=== PATIENT | female | born 1995 | race Caucasian/White ===

== ENCOUNTER 2022-10-19 04:14 | Outpatient (CLI) | payer BC, SELFPAY ==
[2022-10-19 12:04] LABS: Panorama Kit Sent via Fed Ex
[2022-10-19 12:18] LABS: Abs Immature Grans 0.01 10^3/uL (0.0-0.06); Absolute Basophil Count 0.02 10^3/uL (0.0-0.2); Absolute Eosinophil Count 0.03 10^3/uL (0.0-0.7); Absolute Lymphocyte Count 1.25 10^3/uL (1.2-3.4); Absolute Monocyte Count 0.35 10^3/uL (0.1-0.8); Absolute Neutrophil Count 4.74 10^3/uL (1.2-6.7); Basophils % 0.3; Eosinophils % 0.5; HCT 35.2 % (36.0-46.0); HGB 11.8 g/dL (11.2-15.7); Immature Grans % 0.2; Lymphocytes % 19.5; MCH 29.9 pg (27.0-33.0); MCHC 33.5 % (32.0-36.0); MCV 89 fL (80-95); Monocytes % 5.5; Platelet Count 212 10^3/uL (130-400); RBC 3.95 10^6/uL (3.93-5.22); RDW 12.2 % (11.7-14.6); RDW-SD 39.8 fL
[2022-10-20 09:24] LABS: Hepatitis C Ab w Rflx HCV PCR Negative (Negative)
[2022-10-20 10:39] LABS: HIV-1/2 Ag & Ab Screen Negative (Negative)
[2022-10-20 13:10] LABS: Varicella IgG Antibody Negative (See Note)
[2022-10-20 13:14] LABS: Rubella IgG Ab (UVM) Negative (See Note)
[2022-10-20 14:46] LABS: Hepatitis B Surface Ag Negative (Negative)
[2022-10-22 15:22] LABS: Syphilis IgG w/Reflex Nonreactive (Nonreactive)
[2022-10-23 18:38] LABS: Specimen WB Whole Blood
[2022-11-01 13:50] LABS: Result Summary NEGATIVE; Specimen WB Whole Blood
== END 2022-10-19 04:15 | disposition home or self-care (01) ==
LOC: LBO 04:15
PROVIDERS: Visit Provider Advanced Practice Midwife
DX: Z34.91 Encounter for supervision of normal pregnancy, unspecified, first trimester
CPT/HCPCS: 36415; 81220; 81222; 81329; 86787; 86803; 86850; 86900; 86901; 87340; 87389; 85025; 86762; 86780

== ENCOUNTER 2022-10-19 11:55 | Outpatient (REF) | payer BC, SELFPAY ==
--- NOTE | 2022-10-19 11:00 | PAPFT_PTH ---
PATIENT: Anna Botaeng LOC: [facility] U#:[id number] AGE/SX: 26/F ROOM: RE10/19/[address]: Margarette Millan CNM : 1995 BED: DIS: 10/19/2022 SPEC #: [id number] RECD: 10/19/22 16:21 STATUS: GERBER REQ #: [id number] VICTOR MANUEL: 10/19/22 11:[address]: Margarette Millan DEPT: [facility], [facility] Cytology RECD BY: Ailyn Wray Tissues: 1 - CX/ENDOCX FOR PAP SMEARS Procedures: PAP THIN PREP/UVM Screening Comments: [id number] (CHLAMYDIA/GC)
[2022-10-19 17:11] LABS: *AMPHETAMINES SCREEN URINE Negative (Negative); *BARBITURATES SCREEN URINE Negative (Negative); *BENZODIAZEPINES SCREEN URINE Negative (Negative); Cannabinoids THC Negative (Negative); Cocaine Screen,Urine Negative (Negative); METHADONE URINE SCREEN Negative (Negative); OPIATES URINE SCREEN Negative (Negative)
[2022-10-19 17:17] LABS: Tricyclic Antidepressants Negative (Negative)
[2022-10-20 14:41] LABS: Chlamydia Result Negative (Negative); GC Result Negative (Negative)
[2022-10-27 18:36] LABS: Buprenorphine Negative ng/mL (Cutoff: 5.0); Norbuprenorphine Negative ng/mL (Cutoff: 2.5)
== END 2022-10-19 11:56 | disposition home or self-care (01) ==
LOC: LBN 11:55
PROVIDERS: Visit Provider Advanced Practice Midwife
DX: Z12.4 Encounter for screening for malignant neoplasm of cervix (principal)
CPT/HCPCS: 80307; 80348; 87491; 87591; 88142; 87086

== ENCOUNTER 2023-02-12 07:33 | Outpatient (CLI) | payer BC, MEDICAID, SELFPAY ==
[2023-02-12 09:57] VITALS: BP 118/77; PULSE 91; TEMP 36.4
--- NOTE | 2023-02-12 10:53 | W.OBNST ---
Date of service: 02/12/23 Time of Service: 10:54 NST Evaluation Reason for NST Reasons for Nonstress Test: OTHER, SEE COMMENT Reason for NST Other: Flank Pain Gestational Age Gestational Age in Weeks and Days: 28 Weeks and 1Days Test and Monitor Explained Test/Monitor Explained: Test Explained, Monitor Explained and Patient Verbalized Understanding Vital Signs Blood Pressure: 118/77 Pulse: 91 Temperature: 97.5 F Urine Results Urine Protein: Negative Urine Ketones: Negative Urine Glucose: Negative Urine Blood: Negative NST Information Date on Monitor: 02/12/23 Time on Monitor: 09:00 Date off Monitor: 02/12/23 Time off Monitor: 09:55 Total Time on Monitor: 55 NST Interventions: PO Hydration and Notify Provider Contraction Frequency: 0 NST Evaluation Patient States Movement: Present FHR Baseline: 135 Variability: Moderate 6-25 bpm Accelerations: 10x10 Decelerations: Variable NST Results: Reactive Note Ultrasound Done: N/A. NST Note Note: Anna called this morning and complains of upper abdominal pain on left and above umbilicus. She has a history of umbilical hernia and has been referred to surgery. She was told by surgery to schedule appointmnet after . She denies constipation or diarrhea. She is eating normally and denies nausea or vomiting. . She reports that she had fetuccine with broccoli for dinner last night. She also complains of left sciatica O- Abdomen is soft with firm bulging noted at umbilicus. Upper abdomen is slightly distended with bowel gas palpable. Urine dip neg. reactive NST and no evidence of labor. P - Consultation with Dr Solis who agrees with plan for surgery consultation after delivery. She encouraged patient to call with vomiting and nausea or unable to have a BM. 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 Kidney US ordered. Clean catch urine sent for culture. Colace BID escribed. Referred to PT for sciatica. NST Reviewed and Verified by: Pauly Benítez
[2023-02-12 11:01] VITALS: BP 118/77; PULSE 91; TEMP 36.4
== END 2023-02-12 10:25 | disposition home or self-care (01) ==
LOC: BCD 07:35 → OBS 09:01
PROVIDERS: Visit Provider Advanced Practice Midwife
DX: O26.893 Other specified pregnancy related conditions, third trimester (principal); R10.10 Upper abdominal pain, unspecified; Z3A.28 28 weeks gestation of pregnancy
CPT/HCPCS: 59025; 81003; 87086

== ENCOUNTER 2023-02-16 01:49 | Outpatient (CLI) | payer BC, MEDICAID, SELFPAY ==
[2023-02-16 09:29] LABS: HCT 33.7 % (36.0-46.0); HGB 11.5 g/dL (11.2-15.7); MCH 31.1 pg (27.0-33.0); MCHC 34.1 % (32.0-36.0); MCV 91 fL (80-95); MPV 9.9 fL (8.0-11.0); Platelet Count 215 10^3/uL (130-400); RDW 12.5 % (11.7-14.6); RDW-SD 41.4 fL; WBC 6.58 10^3/uL (4.4-10.8)
[2023-02-16 09:46] LABS: Glucose,1 Hr (Glucola) 97 mg/dL (80-140)
== END 2023-02-16 01:50 | disposition home or self-care (01) ==
LOC: LBO 01:49
PROVIDERS: Visit Provider Advanced Practice Midwife
DX: Z34.93 Encounter for supervision of normal pregnancy, unspecified, third trimester (principal); Z3A.28 28 weeks gestation of pregnancy
CPT/HCPCS: 36415; 82950; 85027

== ENCOUNTER 2023-03-30 19:53 | Outpatient (CLI) | payer BC, MEDICAID, SELFPAY ==
[2023-03-30 20:25] VITALS: BP 115/63; PULSE 77
[2023-03-30 20:57] VITALS: BP 115/63; PULSE 77
--- NOTE | 2023-03-31 09:18 | W.OBNST ---
Date of service: 03/30/23 Time of Service: 21:00 NST Evaluation Reason for NST Reasons for Nonstress Test: OTHER, SEE COMMENT Reason for NST Other: gas pain Gestational Age Gestational Age in Weeks and Days: 34 Weeks and 5Days Test and Monitor Explained Test/Monitor Explained: Test Explained Vital Signs Blood Pressure: 115/63 Pulse: 77 Urine Results Urine Protein: Negative Urine Ketones: Negative Urine Glucose: Negative Urine Blood: Negative NST Information Date on Monitor: 03/30/23 Time on Monitor: 20:26 Date off Monitor: 03/30/23 Time off Monitor: 20:57 Total Time on Monitor: 31 NST Interventions: None NST Evaluation Patient States Movement: Present FHR Baseline: 135 Variability: Moderate 6-25 bpm Accelerations: 15x15 Decelerations: None NST Results: Reactive Note Ultrasound Done: N/A. NST Note Note: Anna called earlier this evening and complained of pain in upper abdomen midline. She said that she was certain it was ga as she has experienced previously in this . She was told to try warm liquids and a warm bath and she called back and did get some relief from that but was still experiencing pain when she moves. Gas palpable in upper right quadrant and midline where the pain is now located. Left sided rest recommended at home and call if no relief. reactive NST. Will consider abdominal US if pain persists due to previously identified kidney hydronephritis. NST Reviewed and Verified by: Pauly Benítez
[2023-03-31 09:21] VITALS: BP 115/63; PULSE 77
== END 2023-03-30 21:00 | disposition home or self-care (01) ==
LOC: LBN 19:58 → BCD 20:02 → OBS 20:25
PROVIDERS: Visit Provider Advanced Practice Midwife
DX: O26.893 Other specified pregnancy related conditions, third trimester (principal); R10.10 Upper abdominal pain, unspecified; Z3A.34 34 weeks gestation of pregnancy
CPT/HCPCS: 59025

== ENCOUNTER 2023-04-13 13:30 | Outpatient (REF) | payer BC, MEDICAID, SELFPAY ==
[2023-04-13 15:29] LABS: *AMPHETAMINES SCREEN URINE Negative (Negative); *BARBITURATES SCREEN URINE Negative (Negative); *BENZODIAZEPINES SCREEN URINE Negative (Negative); Cannabinoids THC Negative (Negative); Cocaine Screen,Urine Negative (Negative); METHADONE URINE SCREEN Negative (Negative); OPIATES URINE SCREEN Negative (Negative)
[2023-04-13 15:30] LABS: Tricyclic Antidepressants Negative (Negative)
[2023-04-20 11:38] LABS: Buprenorphine Negative ng/mL (Cutoff: 5.0)
== END 2023-04-13 13:31 | disposition home or self-care (01) ==
LOC: LBN 13:30
PROVIDERS: Visit Provider Advanced Practice Midwife
DX: Z34.93 Encounter for supervision of normal pregnancy, unspecified, third trimester (principal); Z3A.36 36 weeks gestation of pregnancy; Z36.85 Encounter for antenatal screening for Streptococcus B
CPT/HCPCS: 80307; 80348; 87081

== ENCOUNTER 2023-04-20 13:04 | Outpatient (CLI) | payer BC, MEDICAID, SELFPAY ==
[2023-04-20 13:46] VITALS: BP 125/75; PULSE 87; TEMP 36.8
[2023-04-20 13:57] VITALS: BP 125/75; PULSE 87; TEMP 36.8
--- NOTE | 2023-04-20 13:57 | W.OBNST ---
Date of service: 04/20/23 Time of Service: 13:57 NST Evaluation Reason for NST Reasons for Nonstress Test: DECREASED MOVEMENT Gestational Age Gestational Age in Weeks and Days: 37 Weeks and 5Days Test and Monitor Explained Test/Monitor Explained: Test Explained, Monitor Explained and Patient Verbalized Understanding Vital Signs Blood Pressure: 125/75 Pulse: 87 Temperature: 98.2 F Urine Results Urine Protein: Negative Urine Ketones: Negative Urine Glucose: Negative Urine Blood: Negative NST Information Date on Monitor: 04/20/23 Time on Monitor: 13:08 Date off Monitor: 04/20/23 Time off Monitor: 13:40 Total Time on Monitor: 32 NST Interventions: PO Hydration NST Evaluation Patient States Movement: Present and Decreased FHR Baseline: 125 Variability: Moderate 6-25 bpm Accelerations: 15x15 Decelerations: None NST Results: Reactive Note Ultrasound Done: N/A. NST Note NST Reviewed and Verified by: Margarette Millan
== END 2023-04-20 13:55 | disposition home or self-care (01) ==
LOC: BCD 13:09 → OBS 13:18
PROVIDERS: Visit Provider Advanced Practice Midwife
DX: O36.8131 Decreased fetal movements, third trimester, fetus 1 (principal); Z3A.37 37 weeks gestation of pregnancy
CPT/HCPCS: 59025

== ENCOUNTER 2023-04-29 10:47 | Outpatient (CLI) | payer BC, MEDICAID, SELFPAY ==
[2023-04-29 12:44] VITALS: BP 130/88; PULSE 96; TEMP 37
[2023-04-29 12:56] VITALS: BP 130/88; PULSE 96
--- NOTE | 2023-04-29 13:37 | W.OBNST ---
Date of service: 04/29/23 Time of Service: 13:37 NST Evaluation Reason for NST Reasons for Nonstress Test: OTHER, SEE COMMENT Reason for NST Other: R/O labor Gestational Age Gestational Age in Weeks and Days: 39 Weeks and 0Days Test and Monitor Explained Test/Monitor Explained: Test Explained, Monitor Explained and Patient Verbalized Understanding Vital Signs Blood Pressure: 130/88 Pulse: 96 Temperature: 98.6 F NST Information Date on Monitor: 04/29/23 Time on Monitor: 12:42 Date off Monitor: 04/29/23 Time off Monitor: 13:36 Total Time on Monitor: 54 NST Interventions: PO Hydration NST Evaluation Patient States Movement: Present FHR Baseline: 125 Variability: Moderate 6-25 bpm Accelerations: 15x15 Decelerations: None NST Results: Reactive Note Ultrasound Done: N/A. NST Note Note: NST is reactive and reassuring. Irregular contractions noted but patient was comfortable leaving to return if more active contractions are noted. DONALD NST Reviewed and Verified by: Pauly Mittal
[2023-04-29 13:38] VITALS: BP 130/88; PULSE 96; TEMP 37
== END 2023-04-29 13:37 | disposition home or self-care (01) ==
LOC: BCD 10:58 → OBS 12:43
PROVIDERS: Visit Provider Advanced Practice Midwife
DX: O47.1 False labor at or after 37 completed weeks of gestation (principal); Z3A.39 39 weeks gestation of pregnancy
CPT/HCPCS: 59025

== ENCOUNTER 2023-05-03 06:18 | Inpatient (IN) | payer BC, MEDICAID, SELFPAY ==
[2023-05-03] VITALS (51 sets, daily range): BP systolic 101–155; BP diastolic 53–84; PULSE 64–145; RESP 1–18; TEMP 36.4–37.4; O2SAT 97–100; BMI 25.0
[2023-05-03 07:51] LABS: HCT 39.2 % (36.0-46.0); HGB 13.5 g/dL (11.2-15.7); MCH 30.9 pg (27.0-33.0); MCHC 34.4 % (32.0-36.0); MCV 90 fL (80-95); MPV 12.5 fL (8.0-11.0); Platelet Count 234 10^3/uL (130-400); RBC 4.37 10^6/uL (3.93-5.22); RDW 12.3 % (11.7-14.6); RDW-SD 40.5 fL; WBC 11.65 10^3/uL (4.4-10.8)
--- NOTE | 2023-05-03 10:02 | HPE_ITS ---
Date of service: 05/03/23 Time of Service: 10:02 Assessment and Plan Assessment and plan (1) Spontaneous onset of labor: Status: Acute Assessment and plan: Admit to Center. Comfort measures. Covid- 19 test. Anticipate . OB-HPI Labor/Delivery History of Present Illness Reason for Visit: Labor Chief Complaint: Uterine Contractions. JAX Calculator Estimated Delivery Date Method Current WG Current Estimate 05/06/23 LMP (Certain) 39w 4d Comments: Anna called at 0400 and reports strong regular contractions that are 5-6 minutes apart. She presented to the Center and was admitted in early active labor History of Present Expected Delivery Route/Plan - CNM FOB/sunil - Abel Edmonds (first child) BB would like tub room Offer VZV and MMR PP (non immune X2) GBS negative Specific Issues/Plan 1. Desires genetic screening, CF/SMA neg, cfDNA LR male, 2. nausea - IV therapy at [facility]- Ondansetron 4 mg PO and ODT escribed 11/17/22 3. Umbilical bulging, probable hernia, referred to [facility] surgical for consult, given abdominal binder 3a. Increasing discomfort at 28 weeks. Mom - ez support recommmended and daily use recommended. 4. MEDICAL TECHNOLOGIST HEMATOLOGY on anatomy US, patient wanted f/up US though cfDNA=nml risk, 4a. Scan 01/19 recheck MEDICAL TECHNOLOGIST HEMATOLOGY, report states no evidence of MEDICAL TECHNOLOGIST HEMATOLOGY, pt reassured. 5. Sciatica - referred to PT 6. Left bishnu-umbilical pain - Neg. urine, renal US scheduled- mild-moderate hydronephrosis bilaterally - relief methods discussed 7. COVID+ mild sx at home, @ 33 wks [facility] All Active Problems (Updated 05/03/23 @ 10:06 by Pauly Benítez CNM) Spontaneous onset of labor (Acute) COVID-19 virus infection (Acute) at 32 wks Sciatica (Acute) Abdominal pain (Acute) Umbilical abnormality (Acute) umbilical hernia Maternal varicella, non-immune (Acute) Rubella non-immune status, antepartum (Acute) Migraine (Chronic) ADHD, adult residual type (Acute) (Acute) Endometriosis (Chronic) Medical History (Updated 05/03/23 @ 10:06 by Pauly Benítez CNM) Choroid plexus cyst of fetus affecting care of mother, antepartum resolved at 24 wks Missed menses Surgical History (Updated 08/31/22 @ 14:44 by Pauly Benítez CNM) Hx of laparoscopy Social History Smoking/Tobacco Use Status: Never Smoking risk assessment performed?: Yes Drug use: Never Housing: house Do you feel safe at home: Yes Do you feel safe in your relationship?: Yes History History 1 Para 0 Hx # Term Pregnancies 0 Multiple births 0 Hx # Pregnancies 0 Ectopic pregnancies 0 AB induced 0 Hx Number of Living Children 0 AB spontaneous 0 Meds Allergies and Home Medications Allergies Allergy/AdvReac Type Severity Reaction Status Date / Time No Known Drug Allergies Allergy Verified 04/27/23 11:21 Home Medications Medication Instructions Recorded Confirmed Type vitamins no.119-iron tab PO 08/31/22 04/27/23 History fumarate 29 mg-folic acid 1 mg tablet ferrous sulfate 325 mg (65 mg 325 mg PO DAILY #90 tabs 04/13/23 05/03/23 Rx iron) tablet Exam Physical Exam Vital signs: Temp Pulse Resp BP Pulse Ox 97.9 F 96 H 16 121/75 98 05/03/23 09:30 05/03/23 09:30 05/03/23 09:30 05/03/23 09:30 05/03/23 07:26 Detailed Labor and Delivery Exam Dilation: 2 Effacement (%): 90 station: -1 Consistency: soft Domingo Score: Cervical Points Exam 0 1 2 3 Dilation Closed 1-2cm 3-4 cm 5-6cm Effacement 0-30% 40-50% 60-70% 80% Consistency Firm Medium Soft Station -3 -2 -1,0 +1,+2 Position Posterior Mid Anterior Amniotic Membrane Status: Intact Monitor Mode: External Contraction Frequency(min): every 5 min Contraction Duration(sec): 60 Contraction Intensity: Moderate Fetus A Heart Rate Baseline: 140 Monitor Accelerations: 15 X 15 Monitor Decelerations: None Variability: Moderate (6-25 BPM) Presentation: Vertex Categories: Category I Respiratory Exam Respiratory Exam: Normal Cardiovascular Exam Cardiovascular Exam: Normal Abdominal Exam Abdominal Exam: Normal Exam Exam: Normal Extremities Exam Extremities Exam: Normal Skin Exam Skin Exam: Normal Psychiatric Exam Psychiatric Exam: Normal Results Results Group Beta Strep: Negative Blood Type: O+ Rubella Status: Nonimmune Varicella Immunity: Nonimmune Abnormal Lab Findings: Abnormal Labs 05/03/23 07:25 WBC 11.65 H MPV 12.5 H Risk Assessment Risk for Shoulder Dystocia Historical/Initial OB: NEGATIVE FOR: Pelvic Abnormality, Pre- BMI>30, Previous Shoulder Dystocia or Previous Macrosomia 36 Weeks: NEGATIVE FOR: Current Gestational DM, EFW>4500gms or Maternal Weight Gain>40lbs Increased Risk?: No Delivery Plan @ 36wks: NVD Risk for Pre-Eclampsia Daily Dose ASA Indicated: No Date Initiated/Initials: n/a Yes, if one or more: NEGATIVE FOR: Hx Pre-E/Gest HTN, Chronic HTN, Multiple Gestation, Pre-gestational DM, Renal Disease, Systemic Lupus or APA Syndrome Yes, if 2 or more: POSITIVE FOR: Nulliparity; NEGATIVE FOR: Age>= 35 yrs, >10yr btwn pregnancies, BMI>30, ethinicty, Mother/Sister w/ Pre-E or Previous IUGR Risk for Post- Hemorrhage Initial: NEGATIVE FOR: Multiple Gestation, Previous PPH, Known Clotting Deficiency, Grand Multiparity or Anticoagulation 36 Weeks: NEGATIVE FOR: Anemia, hgb<10, Low platelets(thrombocytopenia), Gestational HTN or Pre-E, Polyhydraminios or EFW>4500gms At Risk?: No Risks Reviewed Risks Reviewed Upon Admission: Yes
--- NOTE | 2023-05-03 10:08 | W.PM.OBNL1 ---
Date of service: 05/03/23 Time of Service: 10:08 Pelvic Exam Dilation: 3 Effacement (%): 90 station: 0 Cervix Position: mid Consistency: soft Contractions Monitor Mode: External Contraction Frequency(min): every 5 min Contraction Duration(sec): 60 Intensity: Moderate/Strong Fetus A Monitor: Doppler Heart Rate Baseline: 130 Presentation: Vertex Amniotic Membrane Status: Intact Assessment and Plan Assessment and plan (1) Spontaneous onset of labor: Status: Acute Assessment and plan: Comfort measures and anticipate . Anna requests to use the tub later. Objective Abnormal lab results 05/03/23 Range/Units 07:25 WBC 11.65 H (4.4-10.8) 10^3/uL MPV 12.5 H (8.0-11.0) fL Temp Pulse Resp BP Pulse Ox 97.9 F 96 H 16 121/75 98 05/03/23 09:30 05/03/23 09:30 05/03/23 09:30 05/03/23 09:30 05/03/23 07:26 Laboratory Results WBC 11.65 10^3/uL (4.4-10.8) H 05/03/23 07:25 RBC 4.37 10^6/uL (3.93-5.22) 05/03/23 07:25 Hgb 13.5 g/dL (11.2-15.7) 05/03/23 07:25 Hct 39.2 % (36.0-46.0) 05/03/23 07:25 MCV 90 fL (80-95) 05/03/23 07:25 MCH 30.9 pg (27.0-33.0) 05/03/23 07:25 MCHC 34.4 % (32.0-36.0) 05/03/23 07:25 RDW 12.3 % (11.7-14.6) 05/03/23 07:25 Plt Count 234 10^3/uL (130-400) 05/03/23 07:25 MPV 12.5 fL (8.0-11.0) H 05/03/23 07:25 Patient ABO/Rh O Positive 05/03/23 07:25 Antibody Screen NEGATIVE 05/03/23 07:25 Subjective Interval history since last seen: Anna is using position changes for comfort and coping well with contractions. She is supported by her partner Abel and the two grandmothers Results Hemoglobin/Hematocrit: Hgb 13.5 g/dL (11.2-15.7) 05/03/23 07:25 Hct 39.2 % (36.0-46.0) 05/03/23 07:25 Abnormal Lab Findings: Abnormal Labs 05/03/23 07:25 WBC 11.65 H MPV 12.5 H
--- NOTE | 2023-05-03 12:34 | W.PM.OBNL1 ---
Date of service: 05/03/23 Time of Service: 12:34 Pelvic Exam Dilation: 4 Effacement (%): 95 station: 0 Cervix Position: mid Consistency: soft Contractions Monitor Mode: External Contraction Frequency(min): every 4 min Contraction Duration(sec): 60 Intensity: Moderate/Strong Fetus A Monitor: Doppler Heart Rate Baseline: 130 Presentation: Vertex Decelerations: None Assessment and Plan Assessment and plan (1) Spontaneous onset of labor: Status: Acute Assessment and plan: Pain relief options discussed. Anna would like to use the tub soon. She would like to try nitrous oxide now and that was pprovided. Anticipate Objective Abnormal lab results 05/03/23 Range/Units 07:25 WBC 11.65 H (4.4-10.8) 10^3/uL MPV 12.5 H (8.0-11.0) fL Temp Pulse Resp BP Pulse Ox 97.7 F 83 16 124/81 98 05/03/23 11:35 05/03/23 11:36 05/03/23 11:35 05/03/23 11:36 05/03/23 07:26 Laboratory Results WBC 11.65 10^3/uL (4.4-10.8) H 05/03/23 07:25 RBC 4.37 10^6/uL (3.93-5.22) 05/03/23 07:25 Hgb 13.5 g/dL (11.2-15.7) 05/03/23 07:25 Hct 39.2 % (36.0-46.0) 05/03/23 07:25 MCV 90 fL (80-95) 05/03/23 07:25 MCH 30.9 pg (27.0-33.0) 05/03/23 07:25 MCHC 34.4 % (32.0-36.0) 05/03/23 07:25 RDW 12.3 % (11.7-14.6) 05/03/23 07:25 Plt Count 234 10^3/uL (130-400) 05/03/23 07:25 MPV 12.5 fL (8.0-11.0) H 05/03/23 07:25 Patient ABO/Rh O Positive 05/03/23 07:25 Antibody Screen NEGATIVE 05/03/23 07:25 Subjective Interval history since last seen: Contractions are stronger. Anna used the shower with good effect and has been ambulating. Good support from her team Results Hemoglobin/Hematocrit: Hgb 13.5 g/dL (11.2-15.7) 05/03/23 07:25 Hct 39.2 % (36.0-46.0) 05/03/23 07:25 Abnormal Lab Findings: Abnormal Labs 05/03/23 07:25 WBC 11.65 H MPV 12.5 H
[2023-05-03] MEDS: Normal Saline Flush 10 ML SYR IVP (17:31)
[2023-05-03] MEDS: fentaNYL 100 MCG/2 ML VIAL 25 MCG IVP (17:32)
--- NOTE | 2023-05-03 18:56 | W.PM.OBNL1 ---
Date of service: 05/03/23 Time of Service: 17:00 Pelvic Exam Dilation: 8 Effacement (%): 100 station: 0 Cervix Position: mid Consistency: soft Vaginal Exam Presentation: Vertex Contractions Monitor Mode: External Contraction Frequency(min): every 3 minutes Contraction Duration(sec): 60 Intensity: Strong Fetus A Monitor: External (US) Heart Rate Baseline: 130 Variability: Moderate (6-25 BPM) Categories: Category I Accelerations: 15 X 15 Decelerations: None Amniotic Membrane Status: Ruptured Rupture Method: Artifical Amniotic Fluid: Clear Amount: large Assessment Note: AROM performed at 1538 Assessment and Plan Assessment and plan (1) Spontaneous onset of labor: Status: Acute Assessment and plan: Anna was having a difficult time coping with contractions using nitrous oxide and she returned to the tub. Will continue to encourage position changes and anticipate Objective Abnormal lab results 05/03/23 Range/Units 07:25 WBC 11.65 H (4.4-10.8) 10^3/uL MPV 12.5 H (8.0-11.0) fL Temp Pulse Resp BP Pulse Ox 97.7 F 100 H 18 155/64 H 98 05/03/23 14:07 05/03/23 17:12 05/03/23 14:07 05/03/23 17:12 05/03/23 07:26 Laboratory Results WBC 11.65 10^3/uL (4.4-10.8) H 05/03/23 07:25 RBC 4.37 10^6/uL (3.93-5.22) 05/03/23 07:25 Hgb 13.5 g/dL (11.2-15.7) 05/03/23 07:25 Hct 39.2 % (36.0-46.0) 05/03/23 07:25 MCV 90 fL (80-95) 05/03/23 07:25 MCH 30.9 pg (27.0-33.0) 05/03/23 07:25 MCHC 34.4 % (32.0-36.0) 05/03/23 07:25 RDW 12.3 % (11.7-14.6) 05/03/23 07:25 Plt Count 234 10^3/uL (130-400) 05/03/23 07:25 MPV 12.5 fL (8.0-11.0) H 05/03/23 07:25 Patient ABO/Rh O Positive 05/03/23 07:25 Antibody Screen NEGATIVE 05/03/23 07:25 Subjective Interval history since last seen: Anna has been using the tub with good effect and coping well with contractions using nitrous oxide. Results Hemoglobin/Hematocrit: Hgb 13.5 g/dL (11.2-15.7) 05/03/23 07:25 Hct 39.2 % (36.0-46.0) 05/03/23 07:25 Abnormal Lab Findings: Abnormal Labs 05/03/23 07:25 WBC 11.65 H MPV 12.5 H
--- NOTE | 2023-05-03 19:02 | W.PM.OBNL1 ---
Date of service: 05/03/23 Time of Service: 19:00 Pelvic Exam Dilation: 9 Effacement (%): 100 station: +1 Cervix Position: mid Consistency: soft Comments: cervical edema noted Contractions Monitor Mode: None Contraction Frequency(min): every 3-4 Contraction Duration(sec): 60 Intensity: Strong Fetus A Monitor: External (US) Heart Rate Baseline: 130 Presentation: Vertex Variability: Moderate (6-25 BPM) Categories: Category I Accelerations: 15 X 15 Decelerations: None Amniotic Membrane Status: Ruptured Assessment and Plan Assessment and plan (1) Spontaneous onset of labor: Status: Acute Assessment and plan: pain relief options discussed and Anna would like to proceed with epidural analgesia. Will encourage rest and assess contraction pattern, Anticipate . Objective Abnormal lab results 05/03/23 Range/Units 07:25 WBC 11.65 H (4.4-10.8) 10^3/uL MPV 12.5 H (8.0-11.0) fL Temp Pulse Resp BP Pulse Ox 97.7 F 100 H 18 155/64 H 98 05/03/23 14:07 05/03/23 17:12 05/03/23 14:07 05/03/23 17:12 05/03/23 07:26 Laboratory Results WBC 11.65 10^3/uL (4.4-10.8) H 05/03/23 07:25 RBC 4.37 10^6/uL (3.93-5.22) 05/03/23 07:25 Hgb 13.5 g/dL (11.2-15.7) 05/03/23 07:25 Hct 39.2 % (36.0-46.0) 05/03/23 07:25 MCV 90 fL (80-95) 05/03/23 07:25 MCH 30.9 pg (27.0-33.0) 05/03/23 07:25 MCHC 34.4 % (32.0-36.0) 05/03/23 07:25 RDW 12.3 % (11.7-14.6) 05/03/23 07:25 Plt Count 234 10^3/uL (130-400) 05/03/23 07:25 MPV 12.5 fL (8.0-11.0) H 05/03/23 07:25 Patient ABO/Rh O Positive 05/03/23 07: Antibody Screen NEGATIVE 05/03/23 07: Subjective Interval history since last seen: Anna used the tub and had a strong urge to push. She attempted pushing with occasional contractions and progressed to 9 cms. Her urge to push became stronger and she was unable to stop bearing down. She requested pain medication and an IV was started after 3 attempts and fentanyl 25 mcg IV was given with fair effect at 1730 and she continued to use nitrous oxide. Results Hemoglobin/Hematocrit: Hgb 13.5 g/dL (11.2-15.7) 05/03/23 07:25 Hct 39.2 % (36.0-46.0) 05/03/23 07:25 Abnormal Lab Findings: Abnormal Labs 05/03/23: WBC 11.65 H MPV 12.5 H
--- NOTE | 2023-05-03 19:29 | ANES.PREOP_ITS ---
General Info Date of Service Date Performed: 05/03/23 Height: 5 ft 8 in Weight: 74.843 kg Body Mass Index (BMI): 25.0 Meds Allergies and Home Medications Allergies Allergy/AdvReac Type Severity Reaction Status Date / Time No Known Drug Allergies Allergy Verified 04/27/23 11:21 Home Medication Medication Instructions Recorded vitamins no.119-iron tab PO 08/31/22 fumarate 29 mg-folic acid 1 mg tablet ferrous sulfate 325 mg (65 mg 325 mg PO DAILY #90 tabs 04/13/23 iron) tablet Current Visit Medications: Current Medications Generic Name Dose Route Start Last Admin Trade Name Freq PRN Reason Stop Dose Admin Fentanyl/Ropivacaine 200 ml 05/03/23 19:15 Fentanyl/Ropivacaine 2 Mcg/Ml And 0.1% 200 Ml [place] Cassette EP DIRECTED STACIA Sodium Chloride 500 mls @ 0 mls/hr 05/03/23 06:18 Saline 500ml Bag IV PRN PRN As Directed IV Miscellaneous Supplies 1 each 05/03/23 06:30 Iv Access IV DIRECTED [facility] Sodium Chloride 0 ml 05/03/23 06:18 05/03/23 17:31 Normal Saline Flush 10 Ml Syr IVP 30 ml PRN PRN Administration PFSH Active Problems Active Problems: Problem Status Onset Code Spontaneous onset of labor COVID-19 virus infection U07.1 Sciatica M54.30 Abdominal pain R10.9 Umbilical abnormality Q89.9 Maternal varicella, non-immune O09.899, Z28.39 Rubella non-immune status, antepartum O09.899, Z28.39 Migraine G43.909 ADHD, adult residual type F90.8 Z34.90 Endometriosis N80.9 Medical History Medical History (Updated 05/03/23 @ 10:06 by Pauly Benítez CNM) Choroid plexus cyst of fetus affecting care of mother, antepartum resolved at 24 wks Missed menses Surgical History Surgical History (Updated 08/31/22 @ 14:44 by Pauly Benítez CNM) Hx of laparoscopy Tobacco Smoking/Tobacco Use Status: Never Substance Use Substance use: Never Prental History History 1 Para 0 Hx # Term Pregnancies 0 Multiple births 0 Hx # Pregnancies 0 Ectopic pregnancies 0 AB induced 0 Hx Number of Living Children 0 AB spontaneous 0 Vital Signs and Lab Results Vital Signs Most Recent Vital Signs in EMR: Most Recent Vital Signs Temp Pulse Resp BP Pulse Ox 36.4 C 94 H 18 120/73 97 05/03/23 19:08 05/03/23 19:28 05/03/23 14:07 05/03/23 19:28 05/03/23 19:27 Lab Results 05/03/23 07:25 Blood Type / Crossmatch: Patient ABO/Rh O Positive 05/03/23 Antibody Screen NEGATIVE 05/03/23 Complete Blood Count: White Blood Count 11.65 10^3/uL (4.4-10.8) H 05/03/23 07:25 Red Blood Count 4.37 10^6/uL (3.93-5.22) 05/03/23 07:25 Hemoglobin 13.5 g/dL (11.2-15.7) 05/03/23 07:25 Hematocrit 39.2 % (36.0-46.0) 05/03/23 07:25 Platelet Count 234 10^3/uL (130-400) 05/03/23 07:25 Complete Metabolic Panel: No Data to Display Liver Function Panel: No Data to Display Coagulation Panel: No Data to Display Cardiac Panel: No Data to Display Arterial Blood Gas: No Data to Display Venous Blood Gas: No Data to Display Pancreas Panel: No Data to Display Thyroid Panel: No Data to Display Infectious Disease: No Data to Display Blood Cultures: No Data to Display Toxicology Panel: Urine Amphetamines Screen Negative (Negative) 04/13/23 12:45 Urine Benzodiazepines Screen Negative (Negative) 04/13/23 12:4 5 Urine Barbiturates Screen Negative (Negative) 04/13/23 12:45 Urine Cocaine Screen Negative (Negative) 04/13/23 12:45 Urine Methadone Screen Negative (Negative) 04/13/23 12:45 Urine Opiates Screen Negative (Negative) 04/13/23 12:45 Ur Tricyclic Antidepressants Screen Negative (Negative) 12:45 Ur Tetrahydrocannabinol (THC) Scrn Negative (Negative) 3 12:45 Panel: No Data to Display Anesthesia Assessment and Plan Anesthesia History Personal History: No History of Anesthesia Complications Family History: No Family History of Anesthesia Complications Exercise Tolerance Exercise Tolerance: Metabolic Equivalents>4 Pertinent Negatives Pertinent Negatives: No Symptoms of GERD Cardiac & Pulmonary Exam Cardiac Exam: Normal S1/S2 Heart Sounds Pulmonary Exam: Clear Bilateral Breath Sounds Implantable Cardiac Device Does patient have a Pacemaker or an ICD?: No Airway Exam Known Difficult Airway: No Mallampati Class: 2 Mouth Opening: Normal (> 3cm) Thyromental Distance: Greater than 3 cm Neck Range of Motion: Full ROM Neck Circumference: Normal Teeth Condition: Normal Dentition ASA Classification ASA Score: ASA 2 Emergency Case?: No NPO Status NPO Status: Full Stomach Status Status: Confirmed Anesthesia Plan Resuscitation Status: Full Code Anesthesia Technique: Labor Intrathecal Injection Airway Planned: Natural Airway Pain Management: Surgeon and patient request nerve block Monitors Used: Standard Monitors
--- NOTE | 2023-05-03 19:31 | W.ANESPROC ---
Intrathecal Analgesia Date Performed: 05/03/23 Procedure Time: 19:19 Requesting Provider: Pauly Benítez Procedure Location: Obstetrics Reason Performed: Labor Intrathecal Analgesia Standard Monitors Applied: Blood Pressure, SpO2 and See EMR for corresponding vital signs Patient Position: Sitting Timeout Performed: Yes Sedation Given (Indicate Dose Given): No Sedation given Patient Mental Status: Awake Sterility: Hand Hygiene, Surgical Cap, Surgical Mask, Sterile Gloves, Sterile Drape/Sheet and Chlorhexidine Placement Site: L3-L4 Interspace Spinal Needle Type: Higinio 25 Gauge Needle Length: 3.5 Inch Spinal Procedure: Site Prepped, Sterile Drape Placed, 1% Lidocaine to skin and subcutaneous tissue with 25G needle, Introducer Needle Used, Spinal Needle Placed, Negative Heme, Positive CSF Flow and Medication Injected Paresthesia: None Spinal Local Anesthetic (Indicate Dose Given): Bupivacaine 0.25% PF (ml) Dose:: 1 ml Additives (Indicate Dose Given): Fentanyl PF Dose:: 20 mcg Ultrasound: Not Used Number of Attempts (See previous attempts in note section): 1 Procedure Tolerated: No Complications and Patient tolerated well Procedure Outcome: Successful Performed By: Clive Victoria
[2023-05-03] MEDS: Acetaminophen 325 MG TAB (22:25)
[2023-05-03] MEDS: Ibuprofen 600 MG TAB (22:27)
[2023-05-03] MEDS: Sodium Citrate 30 ML CUP (22:28)
[2023-05-03] MEDS: Oxytocin/Normal Saline 30 UNITS/500 ML BAG 95 UNITS IV (22:29)
--- NOTE | 2023-05-03 22:56 | OBVDS_ITS ---
Date of service: 05/03/23 Time of Service: 22:56 OB Labor/ Delivery Information Baby A Delivery Delivery Method: Spontaneaous Presentation: Vertex Cord Description Comment: nuchal cord x 1 slipped over head prior to griselda kelly Amniotic Fluid: Clear Estimated Blood Loss: 300 Infant Transferred: Remains with Mother Note: Anna complained of severe pain and made slow progress at 9 cms. She received intrathecal analgesia by janet victoria [employer] MACHINE OPERATOR with good effect and rested. There was one prolonged deceleration of the heart after the spinal was placed which resolved after patient moved to hands and knees position. She was examined one hour after intrathecal and anterior rim of cervix noted. She began pushing and pushed very well in various positions. FHTs 130s during first stage of labor. FHTs 130s in second stage with occasional variable decelerations. Progressed to full dilation with pushing. Second stage huddle was done. Spontaneous delivery of male infant delivered in LYNDA position and rotated to LOP. A nuchal cord was slipped over the baby's head prior to delivery. Baby was placed on mother's abdomen and dried and stimulated. Spontaneous cry. Cord was clamped and cut by the baby's father, Abel. The placenta delivered spontaneously and appears to by intact with a three vessel cord. Pitocin 30 units was administered after delivery of the placenta. The perineum was inspected and a left labial laceration was repaired with interupted and ccontinuous 4-0 vicryl suture. The baby did breastfeed. After delivery, Mother and baby and father of the baby were stable and bonding well in the delivery room and there were no complications. Providers Nurse Neurosurgical Nurse Practitioner: Pauly Benítez Statistical Modeler: Janet Victoria Nurse: Kira Mendoza Nurse: Nell Millan Labor/Delivery Information Steroids Given: None Reason Steroids Not Administered: N/A Group Beta Strep: Negative Antibiotics Administered: No Rubella Status: Nonimmune Blood Type: O+ Varicella Immunity: Nonimmune Stages of Labor Onset of Labor Date: 05/03/23 Onset of Labor Time: 23:20 Complete Dilatation Date: 05/03/23 Complete Dilatation Time: 20:26 Labor - Stage 1 Duration: -174 minutes ROM Baby A: 05/03/23 ROM Baby A: 15:38 Delivery Date-Baby A: 05/03/23 Infant Delivery Time-Baby A: 21:43 Labor Stage 2 Duration: 1 hours and 17 minutes Placenta Delivery Date-Baby A: 05/03/23 Placenta Delivery Time-Baby A: 21:50 Labor-Stage 3 Duration: 7 minutes Total Length of Labor-Baby A: -97 minutes Placenta Cultured: No Baby A Gender: Male Gestational Status: Term (39-41.6 wks) Gestational Age in Weeks/Days: 39 Weeks and 4 Days Score-1 Minute Interval(Baby A) Heart Rate-1 minute: 100 BPM or Greater Respiratory Effort- 1 minute: Spontaneous/Strong Cry Muscle Tone-1 minute: Active Movement Reflex Response-1 minute: Prompt Response Color-1 minute: Pallor or Cyanosis Total Score-1 minute: 8
[2023-05-04] MEDS: Acetaminophen 325 MG TAB 650 MG PO ×3 (02:11→19:53)
[2023-05-04] MEDS: Ibuprofen 600 MG TAB PO ×3 (03:52→19:53)
[2023-05-04 08:00] VITALS: BP 115/77; PULSE 78; RESP 16; TEMP 36.7; O2SAT 98
[2023-05-04] MEDS: Docusate Sodium 100 MG CAP PO ×2 (09:30→19:57)
[2023-05-04 11:30] VITALS: BP 123/73; PULSE 96; RESP 17; TEMP 36.9; O2SAT 97
[2023-05-04 15:11] VITALS: BP 106/66; PULSE 83; RESP 17; TEMP 36.7; O2SAT 98
--- NOTE | 2023-05-04 18:51 | W.ANESPOSTOP ---
Postoperative Evaluation Date, Time and Location Date Performed: 05/04/23 Time Performed: 18:51 Patient Location: Obstetrics Vital Signs Most Recent Imported Vital Signs: Most Recent Vital Signs Temp Pulse Resp BP Pulse Ox 36.7 C 83 17 106/66 98 05/04/23 15:11 05/04/23 15:11 05/04/23 15:11 05/04/23 15:11 05/04/23 15:11 Pain Score Most Recent Pain Score: Most Recent Pain Score Pain Level [Abdomen] 3 05/04/23 11:30 Pain Level 3 05/04/23 12:16 Assessment Mental Status: Awake (Alert & Oriented to Patient Baseline) Airway and Respiratory Function: Patent airway with normal (patient baseline) respiratory exam Cardiovascular Function: Hemodynamically Stable Hydration Status: Adequately Hydrated Nausea & Vomiting: No Nausea or Vomiting Pain: Pt. Denies Any Pain Peripheral Nerve Block: Patient did not receive a nerve block
--- NOTE | 2023-05-04 21:51 | OBPPV_ITS ---
Date of service: 05/04/23 Time of Service: 14:00 Assessment and Plan Assessment and plan (1) Term of male : Status: Acute Assessment and plan: Caring for baby independently. Pain is managed well with oral analgesics. Voiding without difficulty. well. A - stable mother and baby , Post day 1 P - Discharge to home tomorrow. Routine post instructions. [facility] Subjective Subjective Interval history: Anna feels well and is caring for her baby well. Patient's Mood: good [place] baby status: Doing well and Nursing well [place] feeding status: Exclusively breast feeding Exam Physical Exam Vital signs: Temp Pulse Resp BP Pulse Ox 98.1 F 83 17 106/66 98 05/04/23 15:11 05/04/23 15:11 05/04/23 15:11 05/04/23 15:11 05/04/23 15:11 Respiratory Exam Respiratory Exam: Normal Cardiovascular Exam Cardiovascular Exam: Normal Fundal Exam Fundus: Below Umbilicus Exam Perineum: Repair Intact External: Absent ecchymosis Extremities Exam Extremity Exam: Normal Skin Exam Skin Exam: Normal Psychiatric Exam Psychiatric Exam: Normal Results Hemoglobin/Hematocrit: Hgb 13.5 g/dL (11.2-15.7) 05/03/23 07:25 Hct 39.2 % (36.0-46.0) 05/03/23 07:25 Abnormal Lab Findings: Abnormal Labs 05/03/23 07:25 WBC 11.65 H MPV 12.5 H
[2023-05-05 07:55] VITALS: BP 121/70; PULSE 112; RESP 18; TEMP 37.2
--- NOTE | 2023-05-05 14:28 | W.PM.OBDISCH ---
Date of service: 05/05/23 Time of Service: 14:28 DS: Diagnosis Discharge Diagnosis (1) Term of male : Status: Acute Asessment and Plan: Caring for baby independently. Pain is managed well with oral analgesics. Voiding without difficulty. well. A - stable mother and baby , Post day 2 P - Discharge to home today. Routine post instructions. [facility] Discharge Plan Disposition Patient Disposition: Home Condition: Good Discharge Details Reason For Visit: Labor Admit Date/Time: 05/03/23 06:18 Admit Provider: Pauly Benítez Attending Provider: Pauly Benítez Home Meds and New Rx's Prescriptions: No Action PNV 119-iron fum-folic acid 29 mg iron- 1 mg tablet PO ferrous sulfate 325 mg (65 mg iron) tablet 325 mg PO DAILY Qty: 90 2RF Discharge Instructions Stand Alone Forms: BC Instructions, BC Post Vaginal Deliver Activity:: Activity as Tolerated Equipment/Supplies:: No Equipment Needed Diet:: As Tolerated Discharge Orders Discharge Orders: Discharge Order (Routine); Ordered 05/05/23 Ordered By: Pauly Benítez Discharge Data Discharge Date/Time-TO BE ENTERED AT DEPARTURE: 05/05/23 11:05 OB:DS Summary Summary Vaginal Delivery Method: Spontaneaous Episiotomy Description: None Laceration Description: Other Laceration Extension: First Degree Contraception Discussed Contraception Discussed: Yes Contraceptive Plan: IUD, Gender-Baby A: Male weight: 7 lb 12.87 oz Status at Discharge Functional status at discharge: independent ambulation Overall status at discharge: patient is back to baseline Mental Status: mental status grossly normal Speech and Movement: speech and movement normal Mood: congruent mood Affect: normal affect Exam Physical Exam Vital signs: Temp Pulse Resp BP Pulse Ox 99.0 F 112 H 18 121/70 98 05/05/23 07:55 05/05/23 07:55 05/05/23 07:55 05/05/23 07:55 05/04/23 15:11 Respiratory Exam Respiratory Exam: Normal Cardiovascular Exam Cardiovascular Exam: Normal Fundal Exam Fundus: Below Umbilicus Exam Perineum: Repair Intact Extremities Exam Extremity Exam: Normal Skin Exam Skin Exam: Normal Psychiatric Exam Psychiatric Exam: Normal PFSH All Active Problems (Updated 10/06/23 @ 21:56 by Pauly Benítez CNM) Term of male (Acute) COVID-19 virus infection (Acute) at 32 wks Sciatica (Acute) Abdominal pain (Acute) Umbilical abnormality (Acute) umbilical hernia Maternal varicella, non-immune (Acute) Rubella non-immune status, antepartum (Acute) Migraine (Chronic) ADHD, adult residual type (Acute) (Acute) Endometriosis (Chronic) Medical History (Updated 05/04/23 @ 21:56 by Pauly Benítez CNM) Choroid plexus cyst of fetus affecting care of mother, antepartum resolved at 24 wks Missed menses Surgical History (Updated 08/31/22 @ 14:44 by Pauyl Benítez CNM) Hx of laparoscopy Social History Smoking/Tobacco Use Status: Never Smoking risk assessment performed?: Yes Drug use: Never Housing: house Do you feel safe at home: Yes Do you feel safe in your relationship?: Yes History History 1 Para 0 Hx # Term Pregnancies 0 Multiple births 0 Hx # Pregnancies 0 Ectopic pregnancies 0 AB induced 0 Hx Number of Living Children 0 AB spontaneous 0 DS: Data Vitals/I&O Vitals and I&O: Vital Signs Temperature 99.0 F 05/05/23 07:55 Temperature 97.8 F 05/03/23 06:08 Temperature Source Oral 05/05/23 07:55 Pulse 112 H 05/05/23 07:55 Pulse 93 05/03/23 06:08 Pulse Rhythm Regular 05/05/23 07:55 Respiratory Rate 18 05/05/23 07:55 Respiratory Depth Normal 05/04/23 19:45 Blood Pressure 121/70 05/05/23 07:55 Blood Pressure 133/68 05/03/23 06:08 Blood Pressure Mean 87 05/05/23 07:55 Pulse Oximetry 98 05/04/23 15:11 Oxygen Delivery Method Room Air 05/03/23 07:26 Oxygen Flow Rate 0 05/03/23 07:26 Pain Level 3 05/04/23 12:16 Intake & Output 05/04/23 05/05/23 05/05/23 23:59 11:59 23:59 Other: Urine Color Yellow Urine Appearance Clear Comment Patient up to void independently. Voiding Methods Toilet
== END 2023-05-05 11:05 | disposition home or self-care (01) | DRG 806 ==
LOC: OBS 06:25
PROVIDERS: Admitting Provider Advanced Practice Midwife; Visit Provider Advanced Practice Midwife
DX: O99.892 Other specified diseases and conditions complicating childbirth (principal); N13.30 Unspecified hydronephrosis; Z37.0 Single live birth; O99.354 Diseases of the nervous system complicating childbirth; Z3A.39 39 weeks gestation of pregnancy; O70.0 First degree perineal laceration during delivery; O69.81X0 Labor and delivery complicated by cord around neck, without compression, not applicable or unspecified; M54.30 Sciatica, unspecified side; K42.9 Umbilical hernia without obstruction or gangrene; O75.89 Other specified complications of labor and delivery; G43.909 Migraine, unspecified, not intractable, without status migrainosus; N80.9 Endometriosis, unspecified; F90.8 Attention-deficit hyperactivity disorder, other type; O99.344 Other mental disorders complicating childbirth
CPT/HCPCS: 36415; 85027; 86850; 86900; 86901; 59025; J3010; J3490

== ENCOUNTER 2023-06-14 13:57 | Outpatient (REF) | payer BC, MEDICAID, SELFPAY | END 2023-06-14 13:58 | disposition home or self-care (01) | LOC: LBN 13:57 | PROVIDERS: PCP Obstetrics & Gynecology Gynecology; Visit Provider Obstetrics & Gynecology Gynecology | DX: Z39.2 Encounter for routine postpartum follow-up (principal) | CPT/HCPCS: 87480; 87510; 87660 ==

== ENCOUNTER 2023-07-26 13:23 | Outpatient (REF) | payer BC, MEDICAID, SELFPAY | END 2023-07-26 13:24 | disposition home or self-care (01) | LOC: LBN 13:23 | PROVIDERS: PCP Obstetrics & Gynecology Gynecology; Visit Provider Advanced Practice Midwife | DX: N89.8 Other specified noninflammatory disorders of vagina (principal) | CPT/HCPCS: 87480; 87510; 87660 ==

== ENCOUNTER 2024-01-09 13:59 | Outpatient (REF) | payer MEDICAID, SELFPAY | END 2024-01-09 14:00 | disposition home or self-care (01) | LOC: LBN 13:59 | PROVIDERS: Visit Provider Nurse Practitioner Women's Health | DX: N76.0 Acute vaginitis (principal) | CPT/HCPCS: 87480; 87510; 87660 ==